=== PATIENT | male | born 1995 ===

== ENCOUNTER 2017-04-11 20:47 | Emergency (ER) | payer MEDICAID ==
[2017-04-11 21:18] VITALS: O2SAT 99
[2017-04-11] MEDS ORDERED: Sodium Chloride 0.9% 1,000 ML IV STA (21:30)
--- NOTE | 2017-04-11 21:33 | ED PDOC ---
HPI: Abdomen Time Seen by Provider: 04/11/17 21:19 Chief Complaint (Nursing): Abdominal Pain Chief Complaint (Provider): abdominal pain History Per: Patient History/Exam Limitations: no limitations Onset/Duration Of Symptoms: Days (1 week), Waxing/Waning Current Symptoms Are (Timing): Still Present Location Of Pain/Discomfort: RLQ Quality Of Discomfort: Sharp Associated Symptoms: Nausea, Loss Of Appetite. denies: Fever, Chills, Vomiting Additional History Per: Patient Additional Complaint(s): 22 y/o male presents with intermittent right lower abdominal pain x 1 week, worsening today. Patient notes pain as sharp, with associated decreased appetite. Denies fever, vomiting, chest pain, changes in bowel movements, dysuria, hematuria. Past Medical History Reviewed: Historical Data, Nursing Documentation, Vital Signs Vital Signs: Last Vital Signs Temp 98.6 F 04/11/17 21:16 Pulse 75 04/11/17 21:16 Resp 16 04/11/17 21:16 BP 138/79 04/11/17 21:16 Pulse Ox 99 04/11/17 21:33 - Medical History PMH: Asthma (seasonal) Denies: Chronic Kidney Disease - Surgical History Surgical History: No Surg Hx - Family History Family History: States: Unknown Family Hx - Immunization History Hx Tetanus Toxoid Vaccination: Yes (2013) Hx Influenza Vaccination: No Hx Pneumococcal Vaccination: No - Home Medications Home Medications: Ambulatory Orders Medication Instructions Recorded Cyclobenzaprine HCl [Flexeril] 10 mg PO BID PRN #12 tab 03/09/15 Ondansetron [Zofran] 4 mg PO Q8H PRN #30 tab 12/03/15 Oseltamivir Phosphate [Tamiflu] 75 mg PO BID #10 capsule 12/03/15 Clotrimazole 1% Cream [Lotrimin 1%] 1 applic TOP BID #1 tube 03/11/16 Azithromycin [Zithromax] 250 mg PO DAILY #6 dose 07/03/16 Promethazine HCl/Codeine 10 ml PO Q6 PRN #120 ml 07/03/16 [Prometh-Codein 6.25-10 mg/5 ml] - Allergies Allergies/Adverse Reactions: Allergies Allergy/AdvReac Type Severity Reaction Status Date / Time No Known Allergies Allergy Verified 03/11/16 14:02 Review of Systems ROS Statement: Except As Marked, All Systems Reviewed And Found Negative Gastrointestinal: Positive for: Abdominal Pain Physical Exam - Reviewed Nursing Documentation Reviewed: Yes Vital Signs Reviewed: Yes - Physical Exam Appears: Positive for: Well, Non-toxic, No Acute Distress Head Exam: Positive for: ATRAUMATIC, NORMAL INSPECTION, NORMOCEPHALIC Skin: Positive for: Normal Color Eye Exam: Positive for: Normal appearance ENT: Positive for: Normal ENT Inspection Cardiovascular/Chest: Positive for: Regular Rate, Rhythm Respiratory: Positive for: Normal Breath Sounds Gastrointestinal/Abdominal: Positive for: Tenderness (right lower) Back: Positive for: Normal Inspection Extremity: Positive for: Normal ROM Neurologic/Psych: Positive for: Alert, Oriented - Laboratory Results Result Diagrams: 04/11/17 20:00 04/11/17 22:02 - ECG O2 Sat by Pulse Oximetry: 99 - Progress ED Course And Treament: labs, urine, CT abd/pelvis, IV fluids EXAM: CT Abdomen and Pelvis With Intravenous Contrast CLINICAL HISTORY: 22 years old, male; Pain; Abdominal pain; Flank; Right lower quadrant (rlq) TECHNIQUE: Axial computed tomography images of the abdomen and pelvis with intravenous contrast. All CT scans at this facility use one or more dose reduction techniques, viz.: automated exposure control; ma/kV adjustment per patient size (including targeted exams where dose is matched to indication; i.e. head); or iterative reconstruction technique. Coronal and sagittal reformatted images were created and reviewed. CONTRAST: 95 mL of [id number] administered intravenously. COMPARISON: No relevant prior studies available. FINDINGS: Lower thorax: No acute findings. ABDOMEN: Liver: Unremarkable. No mass. Gallbladder and bile ducts: No calcified stones. No ductal dilation. Pancreas: No ductal dilation. No mass. Spleen: No splenomegaly. Adrenals: No mass. Kidneys and ureters: No mass. No hydronephrosis. Stomach and bowel: No definite mural thickening. No obstruction. Appendix: Normal caliber. No definite inflammation. PELVIS: Bladder: Unremarkable. Reproductive: Unremarkable as visualized. ABDOMEN and PELVIS: Intraperitoneal space: No significant fluid collection. No free air. Bones/joints: No acute fracture. Soft tissues: Unremarkable. Vasculature: Unremarkable. No aneurysm. Lymph nodes: Few subcentimeter short axis mesenteric lymph nodes, nonspecific. IMPRESSION: 1. No definite acute intraabdominal abnormality. 2. Incidental/non-acute findings are described above. Patient educated on findings, discharged with instructions to follow up PMD 2-3 days. Return to ED for worsening/concerning symptoms. Disposition - Clinical Impression Clinical Impression: Abdominal pain - Patient ED Disposition Is Patient to be Admitted: No Counseled Patient/Family Regarding: Studies Performed, Diagnosis, Need For Followup - Disposition Disposition: Routine/Home Disposition Time: 00:18 Condition: STABLE Instructions: Abdominal Pain (ED)
[2017-04-11 21:54] LABS: RBC URINE 2 /hpf (0-3); URINE BILIRUBIN NEGATIVE (NEGATIVE); URINE BLOOD NEGATIVE (NEGATIVE); URINE COLOR YELLOW (YELLOW); URINE GLUCOSE (UA) NEG (Normal); URINE KETONE NEGATIVE (NEGATIVE); URINE LEUKOCYTE ESTERASE NEG Leu/uL (Negative); URINE PROTEIN NEGATIVE (NEGATIVE); WBC URINE < 1 /hpf (0-5)
[2017-04-11 22:11] LABS: BASO % 0.6 % (0.0-2.0); EOS # 0.1 K/uL (0.0-0.7); EOS % 2.2 % (0.0-4.0); HEMATOCRIT 43.1 % (35.0-51.0); LYMPH # 1.8 K/uL (1.0-4.3); LYMPH % 27.8 % (20.0-40.0); MEAN CELL VOLUME 86.7 fl (80.0-94.0); MEAN CORPUSCULAR HEMOGLOBIN 28.2 pg (27.0-31.0); MEAN CORPUSCULAR HGB CONC 32.5 g/dL (33.0-37.0); MEAN PLATELET VOLUME 8.7 fl (7.2-11.7); MONO # 0.5 K/uL (0.0-0.8); MONO % 8.1 % (0.0-10.0); NEUT # 3.9 K/uL (1.8-7.0); NEUT % 61.3 % (50.0-75.0); RED CELL DISTRIBUTION WIDTH 13.6 % (11.5-14.5); WHITE BLOOD COUNT 6.3 K/uL (4.8-10.8)
[2017-04-11 22:18] LABS: ALB/GLOB RATIO 1.6 (1.0-2.1); ALKALINE PHOSPHATASE 41 U/L (38-126); ALT/SGPT 25 U/L (21-72); AST/SGOT 27 U/L (17-59); BILIRUBIN,TOTAL 0.7 mg/dl (0.2-1.3); BLOOD UREA NITROGEN 17 mg/dl (9-20); CARBON DIOXIDE 24 mmol/L (22-30); CHLORIDE 104 mmol/L (98-107); GFR AFRICAN-AMERICAN > 60; GLUCOSE,RANDOM 100 mg/dL (75-110); SODIUM 139 mmol/l (132-148); TOTAL PROTEIN 7.1 G/DL (6.3-8.2)
[2017-04-11 22:19] LABS: PARTIAL THROMBOPLASTIN TIME 32.7 Seconds (25.6-37.1)
[2017-04-11] MEDS ORDERED: Sodium Chloride 0.9% 50 ML IV ONE (23:11)
[2017-04-11] MEDS ORDERED: Iohexol 300 100 ML IJ ONE ×2 (23:11)
--- NOTE | 2017-04-11 23:58 | CT ---
EXAM: CT Abdomen and Pelvis With Intravenous Contrast CLINICAL HISTORY: 22 years old, male; Pain; Abdominal pain; Flank; Right lower quadrant (rlq) TECHNIQUE: Axial computed tomography images of the abdomen and pelvis with intravenous contrast. All CT scans at this facility use one or more dose reduction techniques, viz.: automated exposure control; ma/kV adjustment per patient size (including targeted exams where dose is matched to indication; i.e. head); or iterative reconstruction technique. Coronal and sagittal reformatted images were created and reviewed. CONTRAST: 95 mL of [id number] administered intravenously. COMPARISON: No relevant prior studies available. FINDINGS: Lower thorax: No acute findings. ABDOMEN: Liver: Unremarkable. No mass. Gallbladder and bile ducts: No calcified stones. No ductal dilation. Pancreas: No ductal dilation. No mass. Spleen: No splenomegaly. Adrenals: No mass. Kidneys and ureters: No mass. No hydronephrosis. Stomach and bowel: No definite mural thickening. No obstruction. Appendix: Normal caliber. No definite inflammation. PELVIS: Bladder: Unremarkable. Reproductive: Unremarkable as visualized. ABDOMEN and PELVIS: Intraperitoneal space: No significant fluid collection. No free air. Bones/joints: No acute fracture. Soft tissues: Unremarkable. Vasculature: Unremarkable. No aneurysm. Lymph nodes: Few subcentimeter short axis mesenteric lymph nodes, nonspecific. IMPRESSION: 1. No definite acute intraabdominal abnormality. 2. Incidental/non-acute findings are described above.
[2017-04-12 00:23] VITALS: BP 116/72; PULSE 87; RESP 18; TEMP 98
== END 2017-04-12 00:28 | disposition home or self-care (01) ==
LOC: H.ER 20:47
DX: R10.31 Right lower quadrant pain (principal)
CPT/HCPCS: 74177; 80053; 81003; 85025; 85610; 85730; 99282; J7040; Q9967

== ENCOUNTER 2017-11-11 19:27 | Emergency (ER) | payer MEDICAID ==
[2017-11-11 19:39] VITALS: BP 102/57; PULSE 77; RESP 16; TEMP 98.3; O2SAT 100
[2017-11-11] MEDS ORDERED: guaiFENesin 200 mg/10 ml Syrup UD PO ONE (20:06)
[2017-11-11] MEDS ORDERED: Albuterol-Ipratrop 3 mg / 0.5 (3 ml) UD IH STA (20:06)
[2017-11-11] MEDS ORDERED: guaiFENesin 100 mg/5 ml Syrup UD ONE (20:30)
--- NOTE | 2017-11-11 20:36 | ED PDOC ---
History of Present Illness History of Present Illness: Patient complains of cough, 1 week ago patient had flu like symptoms and took 2 days of an old Rx of zithromax, he states that he took it for 3 days, last does taken was 2-3 days ago. Reports continued cough. Otherwise: (-) fever, (-) chills, (-) chest pain, (-) shortness of breath, (-) back pain, (-) travel. PMD: Hermes Saleem MD HPI: Influenza Time Seen by Provider: 11/11/17 19:40 Chief Complaint: Cough, Cold, Congestion Chief Complaint (Provider): Cough, Cold, Congestion History Per: Patient Exam Limitations: no limitations Symptoms include: cough. denies: fever Past Medical History Reviewed: Historical Data, Nursing Documentation, Vital Signs Vital Signs: Last Vital Signs Temp 98.3 F 11/11/17 19:36 Pulse 77 11/11/17 19:36 Resp 16 11/11/17 19:36 BP 102/57 L 11/11/17 19:36 Pulse Ox 100 11/11/17 19:36 - Medical History PMH: Asthma (seasonal) Denies: Chronic Kidney Disease - Surgical History Surgical History: No Surg Hx - Family History Family History: States: Unknown Family Hx - Social History Current smoker - smoking cessation education provided: No (Never smoked) Alcohol: None Drugs: Denies - Immunization History Hx Tetanus Toxoid Vaccination: Yes (2013) Hx Influenza Vaccination: No Hx Pneumococcal Vaccination: No - Home Medications Home Medications: Ambulatory Orders Medication Instructions Recorded Cyclobenzaprine HCl [Flexeril] 10 mg PO BID PRN #12 tab 03/09/15 Ondansetron [Zofran] 4 mg PO Q8H PRN #30 tab 12/03/15 Oseltamivir Phosphate [Tamiflu] 75 mg PO BID #10 capsule 12/03/15 Clotrimazole 1% Cream [Lotrimin 1%] 1 applic TOP BID #1 tube 03/11/16 Azithromycin [Zithromax] 250 mg PO DAILY #6 dose 07/03/16 Promethazine HCl/Codeine 10 ml PO Q6 PRN #120 ml 07/03/16 [Prometh-Codein 6.25-10 mg/5 ml] Albuterol 0.083% [Albuterol 3 ml IH Q4 #100 neb 11/11/17 Sulfate 3 Ml] Albuterol HFA [Ventolin HFA 90 2 puff IH [id number] #1 puff 11/11/17 mcg/actuation (8 g)] Guaifenesin 400 mg PO QID #20 tablet 11/11/17 Nebulizer [Aeroeclipse II] 1 each MC DAILY #1 each 11/11/17 - Allergies Allergies/Adverse Reactions: Allergies Allergy/AdvReac Type Severity Reaction Status Date / Time No Known Allergies Allergy Verified 11/11/17 19:36 Review of Systems ROS Statement: Except As Marked, All Systems Reviewed And Found Negative (As per HPI,otherwise negative) Constitutional: Negative for: Fever, Chills Cardiovascular: Negative for: Chest Pain Respiratory: Positive for: Cough. Negative for: Shortness of Breath Musculoskeletal: Negative for: Back Pain Physical Exam - Physical Exam Comments: GENERAL APPEARANCE: Patient is awake, alert, oriented x 3, in no acute distress. Patient speaking in full sentences. Patient is coughing in the ER. SKIN: Warm, dry; (-) cyanosis. EYES: (-) conjunctival pallor. ENMT: Mucous membranes moist. Airway patent: (-) stridor. Pharynx: (-) swelling, (-) erythema, (-) exudate. NECK: (-) tenderness, (-) stiffness, (-) lymphadenopathy. CHEST AND RESPIRATORY: (-) rhonchi, (-) rales, (-) wheezes, (-) pleural rub; breath sounds equal bilaterally. HEART AND CARDIOVASCULAR: (-) irregularity; (-) murmur, (-) gallop. ABDOMEN AND GI: Soft; (-) tenderness. EXTREMITIES: (-) deformity; (-) edema. NEURO AND PSYCH: Mental status as above. Cranial nerves grossly intact; strength symmetric. Medical Decision Making Medical Decision Making: Time: 20:06 Initial Impression: Rule out pneumonia likely bronchitis Plan: Chest x-ray Albuterol/Ipratropium 3ml INH Robitussin 200mg PO Nebulizer treatment Peak flow pre/post tx Time: 20:45 CXR : NAD, as read by PA (compared to prior CXR done in 06/2016) Patient advised that official radiology read of XR is still pending and will call the patient if there is any discrepancy within 24 hours. On reevaluation, patient is laying in bed comfortably in no acute distress. Patient speaking in full sentences, breathing unlabored. Lungs remain clear to auscultation. X-ray results discussed with the patient in great detail. Diagnosis of bronchitis discussed with the patient. Based on history, exam and diagnostic results plan will be for outpatient follow -up. Advised to follow up with primary care physician in 1-2 days without fail. Advised to take medication as prescribed. Return to the emergency room at any time for any new or worsening symptoms. Patient states he fully agrees with and understands discharge instructions. States that he agrees with the plan and disposition. Verbalized and repeated discharge instructions and plan. I have given the patient opportunity to ask any additional questions. Scribe Attestation: Documented by Bisi Roy acting as a scribe for DORYS Ward PA-C. Scribe Attestation: All medical record entries made by the Scribe were at my direction and personally dictated by me. I have reviewed the chart and agree that the record accurately reflects my personal performance of the history, physical exam, medical decision making, and the department course for this patient. I have also personally directed, reviewed, and agree with the discharge instructions and disposition. - ECG O2 Sat by Pulse Oximetry: 100 (RA) Pulse Ox Interpretation: Normal Disposition - Clinical Impression Clinical Impression: Bronchitis - Patient ED Disposition Is Patient to be Admitted: No Counseled Patient/Family Regarding: Studies Performed, Diagnosis, Need For Followup, Rx Given - Disposition Disposition: Routine/Home Disposition Time: 20:45 Condition: STABLE Additional Instructions: Thank you for letting us take care of you today. You were treated for acute bronchitis. The emergency medical care you received today was directed at your acute symptoms. If you were prescribed any medication, please fill it and take as directed. It may take several days for your symptoms to resolve. Return to the Emergency Department if your symptoms worsen, do not improve, or if you have any other problems. Please contact your doctor in 2 days for re-evaluation and follow up. Bring any paperwork you were given at discharge with you along with any medications you are taking to your follow up visit. Our treatment cannot replace ongoing medical care by a primary care provider (PCP) outside of the emergency department. Thank you for allowing the [facility] team to be part of your care today. If you had an X-Ray : A Radiologist will review the ED reading if any change in treatment is needed we will contact you. Prescriptions: Albuterol HFA [Ventolin HFA 90 mcg/actuation (8 g)] 2 puff IH [id number] #1 puff Albuterol 0.083% [Albuterol Sulfate 3 Ml] 3 ml IH Q4 #100 neb Guaifenesin 400 mg PO QID #20 tablet Nebulizer [Aeroeclipse II] 1 each MC DAILY #1 each Instructions: Acute Bronchitis Forms: [employer] (Iranian), [facility] ED School/Work Excuse
--- NOTE | 2017-11-12 13:27 | RAD ---
HISTORY: cough COMPARISON: 07/03/2016 TECHNIQUE: Chest PA and lateral FINDINGS: LUNGS: No active pulmonary disease. PLEURA: No significant pleural effusion identified. No pneumothorax apparent. CARDIOVASCULAR: Normal. OSSEOUS STRUCTURES: No significant abnormalities. VISUALIZED UPPER ABDOMEN: Normal. OTHER FINDINGS: None. IMPRESSION: No active disease. No significant interval change compared to the prior examination(s).
== END 2017-11-11 21:24 | disposition home or self-care (01) ==
LOC: H.ER 19:27
DX: J40 Bronchitis, not specified as acute or chronic (principal); J45.909 Unspecified asthma, uncomplicated

== ENCOUNTER 2018-02-18 20:54 | Emergency (ER) | payer MEDICAID ==
--- NOTE | 2018-02-18 21:15 | ED PDOC ---
History of Present Illness History of Present Illness: 23 y/o male with no significant PMHx presents to the ED complaining of an occasional phlegm producing cough associated with headache, myalgia, throat pain , and ear pain, onset two days. Patient reports cough began two days ago but worsened today thus prompting todays visit. Patient also reports pain worsens at night. Patient states he took Motrin yesterday with no relief. Denies sick contacts medications today. PMD: No Provider HPI: Influenza Time Seen by Provider: 02/18/18 21:03 Chief Complaint: Cough, Cold, Congestion Chief Complaint (Provider): Cough, Cold, Congestion History Per: Patient Exam Limitations: no limitations Onset/Duration Of Symptoms: Days (x2) Symptoms include: headache, bodyaches, sore throat, cough Past Medical History Reviewed: Historical Data, Nursing Documentation, Vital Signs Vital Signs: Last Vital Signs Temp 100.7 F H 02/18/18 21:01 Pulse 134 H 02/18/18 21:01 Resp 20 02/18/18 21:01 BP 123/67 02/18/18 21:01 Pulse Ox 97 02/18/18 21:01 - Medical History PMH: Asthma (seasonal) Denies: Chronic Kidney Disease - Surgical History Surgical History: No Surg Hx - Family History Family History: States: Unknown Family Hx - Immunization History Hx Tetanus Toxoid Vaccination: Yes (2013) Hx Influenza Vaccination: No Hx Pneumococcal Vaccination: No - Home Medications Home Medications: Ambulatory Orders Medication Instructions Recorded Cyclobenzaprine HCl [Flexeril] 10 mg PO BID PRN #12 tab 03/09/15 Ondansetron [Zofran] 4 mg PO Q8H PRN #30 tab 12/03/15 Oseltamivir Phosphate [Tamiflu] 75 mg PO BID #10 capsule 12/03/15 Clotrimazole 1% Cream [Lotrimin 1%] 1 applic TOP BID #1 tube 03/11/16 Azithromycin [Zithromax] 250 mg PO DAILY #6 dose 07/03/16 Promethazine HCl/Codeine 10 ml PO Q6 PRN #120 ml 07/03/16 [Prometh-Codein 6.25-10 mg/5 ml] Albuterol 0.083% [Albuterol 3 ml IH Q4 #100 neb 11/11/17 Sulfate 3 Ml] Albuterol HFA [Ventolin HFA 90 2 puff IH [id number] #1 puff 11/11/17 mcg/actuation (8 g)] Guaifenesin 400 mg PO QID #20 tablet 11/11/17 Nebulizer [Aeroeclipse II] 1 each MC DAILY #1 each 11/11/17 Azithromycin [Zithromax] 500 mg PO DAILY #6 tab 02/18/18 Methylprednisolone [Medrol Dose 4 mg PO DAILY #21 mg 02/18/18 Pack (21 tabs)] Promethazine HCl/Codeine 5 ml PO HS #80 ml 02/18/18 [Prometh-Codein 6.25-10 mg/5 ml] - Allergies Allergies/Adverse Reactions: Allergies Allergy/AdvReac Type Severity Reaction Status Date / Time No Known Allergies Allergy Verified 02/18/18 21:01 Review of Systems ROS Statement: Except As Marked, All Systems Reviewed And Found Negative Constitutional: Positive for: Other (myalgia) ENT: Positive for: Ear Pain, Throat Pain Respiratory: Positive for: Cough Neurological: Positive for: Headache Physical Exam - Reviewed Nursing Documentation Reviewed: Yes Vital Signs Reviewed: Yes - Physical Exam Appears: Positive for: No Acute Distress Head Exam: Positive for: ATRAUMATIC, NORMOCEPHALIC Skin: Positive for: Normal Color, Warm, Dry Eye Exam: Positive for: Normal appearance, EOMI, PERRL ENT: Positive for: Normal ENT Inspection, Pharyngeal Erythema (and ulceration noted to right tonsil) Neck: Positive for: Normal, Painless ROM Cardiovascular/Chest: Positive for: Regular Rate, Rhythm Respiratory: Positive for: Normal Breath Sounds Extremity: Positive for: Normal ROM. Negative for: Deformity Neurologic/Psych: Positive for: Alert, Oriented (x3). Negative for: Motor/ Sensory Deficits Medical Decision Making Medical Decision Making: Time: 2115 Plan: -- Rapid Strep Group A Antigen -- Motrin 600 mg PO -- CXR (PA&LAT) CXR: NAD, as read by WALT Zimmerman (-) repeat temp: 98.9 F Scribe Attestation: Documented by Therese Martin, acting as a scribe for Uma Ware PA-C. Provider Scribe Attestation: All medical record entries made by the Scribe were at my direction and personally dictated by me. I have reviewed the chart and agree that the record accurately reflects my personal performance of the history, physical exam, medical decision making, and the department course for this patient. I have also personally directed, reviewed, and agree with the discharge instructions and disposition. - ECG O2 Sat by Pulse Oximetry: 97 Disposition - Clinical Impression Clinical Impression: Viral illness, Upper respiratory infection - Patient ED Disposition Is Patient to be Admitted: No - Disposition Disposition: Routine/Home Disposition Time: 22:21 Condition: STABLE Prescriptions: Azithromycin [Zithromax] 500 mg PO DAILY #6 tab Methylprednisolone [Medrol Dose Pack (21 tabs)] 4 mg PO DAILY #21 mg Promethazine HCl/Codeine [Prometh-Codein 6.25-10 mg/5 ml] 5 ml PO HS #80 ml Instructions: Viral Upper Respiratory Infection, Adult (DC) Forms: [employer] (Danish)
[2018-02-18 22:19] VITALS: BP 132/88; PULSE 98; RESP 16; TEMP 100.2
[2018-02-18 22:21] VITALS: O2SAT 97
--- NOTE | 2018-02-19 09:05 | RAD ---
Date of service: 02/18/2018 HISTORY: fever and cough COMPARISON: Chest radiographs 07/03/2016 and 11/11/2017. TECHNIQUE: Chest PA and lateral FINDINGS: LUNGS: No interval acute cardiopulmonary disease. A small calcified granuloma seen the left apex. PLEURA: No significant pleural effusion identified. No pneumothorax apparent. CARDIOVASCULAR: Normal. OSSEOUS STRUCTURES: No significant abnormalities. VISUALIZED UPPER ABDOMEN: Normal. OTHER FINDINGS: None. IMPRESSION: No interval acute cardiopulmonary disease appreciated.
== END 2018-02-18 23:33 | disposition home or self-care (01) ==
LOC: H.ER 20:54
DX: B34.9 Viral infection, unspecified (principal); J06.9 Acute upper respiratory infection, unspecified